=== PATIENT | female | born 1955 | race Caucasian/White ===

== ENCOUNTER → 2023-03-09 | Outpatient (CLI) | payer MEDICARE ==
[~2023-03-09] MED LIST: ASPI325T PO; DIOV80TA2 PO; PRIL40CA PO; ZOCO40TA PO
== END ==
LOC: M WUC 13:26
PROVIDERS: ATTEND Nurse Practitioner Adult Health
DX: M47.816 Spondylosis without myelopathy or radiculopathy, lumbar region (principal); M25.551 Pain in right hip; M25.552 Pain in left hip; M46.96 Unspecified inflammatory spondylopathy, lumbar region